=== PATIENT | female | born 1980 | race Caucasian/White ===

== ENCOUNTER 2024-08-23 09:34 | Outpatient (CLI) | payer BC ==
[2024-08-23 10:57] LABS: Anion Gap 11 mmol/L (10-20); BUN (Urea Nitrogen) 12 mg/dL (7.0-18.7); Calc. Creatinine Clearance 0 mL/min (70-130); Calcium 9.4 mg/dL (7.8-10.44); Carbon Dioxide 28 mmol/L (22-29); Chloride 104 mmol/L (98-107); Estimated GFR 113; Glucose 90 mg/dL (70-105); Sodium 139 mmol/L (136-145)
[2024-08-23 11:25] LABS: #Basophils 0.03 10x3/uL (0.0-0.2); #Monocytes 0.53 10x3/uL (0.0-1.1); #Neutrophils 2.17 10x3/uL (1.5-8.4); %Basophils 0.5 % (0.0-2.0); %Eosinophils 1.6 % (0.0-6.0); %Lymphocytes 53.5 % (18.0-47.0); %Monocytes 8.7 % (0.0-10.0); %Neutrophils 35.5 % (40.0-75.0); Hematocrit 41.2 % (34.9-44.5); Hemoglobin 14.2 g/dL (12.0-15.5); Mean Corpuscular HGB CONC 34.5 g/dL (32.0-36.0); Mean Corpuscular Hemoglobin 32.9 pg (27.0-33.0); Mean Corpuscular Volume 95.6 fL (81.6-98.3); Mean Platelet Volume 8.4 fL (7.4-10.4); Platelet Count 291 10x3/uL (150-450); RBC Distribution Width 11.2 % (11.5-14.5); Red Blood Cell (RBC) Count 4.31 10x6/uL (3.90-5.03); White Blood Cell (WBC) Count 6.11 10x3/uL (3.5-10.5)
== END 2024-08-23 09:35 | disposition home or self-care (01) ==
LOC: CSHLAB 09:34
PROVIDERS: ATTEND Specialist
DX: Z01.812 Encounter for preprocedural laboratory examination (principal); K60.2 Anal fissure, unspecified
CPT/HCPCS: 80048; 85025

== ENCOUNTER 2024-08-24 10:58 | Day surgery (SDC) | payer BC ==
[2024-08-23 10:04] VITALS: BMI 38.4
[~2024-08-24 10:58] MED LIST: EPINEPHrine 1 MG/ML AMP ONE
[2024-08-24] MEDS ORDERED: Acetaminophen 500 MG TAB ONE (11:23)
[2024-08-24] MEDS ORDERED: Ketorolac Tromethamine 30 MG (1 mL) VIAL ONE (11:23)
[2024-08-24] MEDS ORDERED: Bupivacaine/Epinephrine 0.25% 30 ML VIAL ONE (12:33)
[2024-08-24] MEDS ORDERED: PROPOFOL 20 ML ONE (12:35)
[2024-08-24] MEDS ORDERED: Lidocaine 2% 6 ML (Jelly) SYR ONE (12:38)
[2024-08-24] MEDS ORDERED: CEFAZOLIN 2 GM VIAL ONE (12:46)
[2024-08-24] MEDS ORDERED: fentaNYL 50 mcg/mL 1 mL Vial ONE (13:05)
[2024-08-24] MEDS ORDERED: Ondansetron PF 4 MG/2 ML Vial ONE (13:08)
[2024-08-24] MEDS ORDERED: Dexamethasone 4 mg/ml Vial ONE (13:08)
[2024-08-24] MEDS ORDERED: Lidocaine 2% PF 5 ML VIAL ONE (13:12)
== END 2024-08-24 14:40 | disposition home or self-care (01) ==
LOC: CSHSDC 10:58
PROVIDERS: ATTEND Specialist
PROC: 0D9R0ZZ Drainage of Anal Sphincter, Open Approach (ICD-10-PCS; principal; 2024-08-24)
DX: K60.2 Anal fissure, unspecified (principal); I10 Essential (primary) hypertension; K31.84 Gastroparesis; E66.01 Morbid (severe) obesity due to excess calories; Z68.41 Body mass index [BMI] 40.0-44.9, adult; Z79.899 Other long term (current) drug therapy; Z95.810 Presence of automatic (implantable) cardiac defibrillator; Z98.84 Bariatric surgery status; Z88.8 Allergy status to other drugs, medicaments and biological substances; Z88.2 Allergy status to sulfonamides
CPT/HCPCS: J0171; J1100; J1885; J2405; J2704; J3010